=== PATIENT | female | born 1995 | race Caucasian/White ===

== ENCOUNTER 2016-07-24 16:24 | Inpatient (IN) ==
[2016-07-24] MEDS ORDERED: ONDANSETRON 4 MG/2 ML VIAL IV PRN ×2 (17:31→17:55)
[2016-07-24] MEDS ORDERED: WITCH HAZEL PADS 100/JAR TOP PRN (17:55)
[2016-07-24] MEDS ORDERED: MEASLES/MUMPS/RUBELLA VACCINE 0.5 ML VIAL SUBCUT ONE (17:55)
[2016-07-24] MEDS ORDERED: ACETAMINOPHEN 325 MG TABLET PO PRN (17:55)
[2016-07-24] MEDS ORDERED: HYDROCORTISONE 2.5% RECTAL CREAM 30 GM TUBE TOP PRN (17:55)
[2016-07-24] MEDS ORDERED: BISACODYL 10 MG SUPP RECTAL PRN (17:55)
[2016-07-24] MEDS ORDERED: LANOLIN 50% CREAM 0.3 OZ TUBE TOP PRN (17:55)
[2016-07-24] MEDS ORDERED: RHO(D) IMMUNE GLOBULIN 300 MCG SYRINGE IM ONE (17:55)
[2016-07-24] MEDS ORDERED: OXYTOCIN/LR 20 UNIT/1,000 ML BAG IV ONE (17:55)
[2016-07-24] MEDS ORDERED: BENZOCAINE 20%/MENTHOL 0.5% SPRAY 56 GM CAN TOP PRN (17:55)
[2016-07-24] MEDS ORDERED: oxyCODONE/ACETAMINOPHEN 5-325 MG TABLET PO PRN ×2 (17:55)
[2016-07-24] MEDS ORDERED: DIPH/TET/ACEL PERT BOOSTER VACCINE 0.5 ML VIAL IM ONE (17:55)
[2016-07-24] MEDS ORDERED: IBUPROFEN 800 MG TABLET PO PRN (17:55)
--- NOTE | 2016-07-24 17:55 | OB/GYN History & Physical ---
History of Present Illness Chief complaint: 39+3 weeks estimated gestational age admitted for induction History of present illness: Ms. Schumacher is a 20 year old female 1 para 0 at 39+3 weeks estimated gestational age with ultrasound estimated weight of 8 lbs. 3 oz. 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 General appearance: normal weight, no acute distress - Head Head exam: Present: normal inspection, normocephalic, atraumatic - Eye Eye exam: Present: EOMI - ENT ENT exam: Present: normal exam - Neck Neck exam: Present: normal inspection - Respiratory Respiratory exam: Present: clear to auscultation bilaterally - Breast Breasts: as per HPI Menstruation: as per HPI - GI/Abdominal GI/Abdominal exam: Present: normal bowel sounds - Extremities Exam Extremities exam: Present: normal inspection, normal capillary refill - Back Exam Back exam: Present: normal inspection - Neurological Exam Neurological exam: Present: alert, oriented X3 - Psychiatric Psychiatric exam: Present: normal affect, normal mood - Skin Skin exam: Present: normal color, warm Assessment and Plan (1) with 39 completed weeks gestation Status: Acute Current Visit: Yes
[2016-07-24 18:00] LABS: Basophils % 0.3 % (0.0-0.8); Eosinophils # 0.1 10*3/uL (0.0-0.87); Eosinophils % 0.6 % (0.00-10.9); Hematocrit 36.4 VOL% (35.7-47.0); Hemoglobin 11.9 GM/DL (12.0-16.0); Immature Granulocytes % 1.4 %; Immature Granulocytes Absolute 0.14 #; Lymphocytes # 1.7 10*3/uL (1.4-4.0); Lymphocytes % 16.1 % (21.3-54.2); Mean Corpuscular HGB Conc 32.7 GM/DL (32-36); Mean Corpuscular Hemoglobin 28 PG (27-34); Mean Corpuscular Volume 85.8 FL (87-102); Mean Platelet Volume 13.2 FL (9.6-12.0); Monocytes # 0.9 10*3/uL (0.11-0.8); Neutrophils # 7.5 10*3/uL (1.4-7.4); Neutrophils % 72.6 % (38.7-73.9); Platelet Count 118 T/CUMM (130-400); Red Blood Count 4.24 MC/CUMM (3.8-5.5); Red Cell Distribution Width 13.9 % (9.3-17.3); White Blood Count 10.4 T/CUMM (4-12)
[2016-07-24] MEDS: LACTATED RINGERS 1,000 ML IV SCH ×2 (19:43→23:05)
[2016-07-24] MEDS ORDERED: DOCUSATE SODIUM 100 MG CAPSULE PO SCH (21:00)
[2016-07-24] MEDS ORDERED: FAMOTIDINE 20 MG/2 ML VIAL IV ONE (22:48)
[2016-07-24] MEDS ORDERED: CITRIC ACID/SODIUM CITRATE 30 ML UDCUP PO ONE (22:48)
[2016-07-24] MEDS ORDERED: ePHEDrine 50 MG/ML AMP IV PRN (22:48)
[2016-07-24] MEDS ORDERED: fentaNYL 2 MCG/ROPIV 0.2% EPID 150 ML EPIDURAL SCH (22:57)
[2016-07-25] MEDS: LACTATED RINGERS 1,000 ML IV SCH (00:12)
[2016-07-25 00:54] LABS: Apearance,Urine CLEAR (Clear); Bilirubin,Urine Negative (Negative); Blood, Urine Negative (Negative); Glucose,Urine (UA) Negative (Negative); Ketones,Urine Negative (Negative); Nitrite,Urine Negative (Negative); Protein,Urine Negative; RBC,Urine <1 /HPF (0-4); Squamous Epithelial Cell,Urine Occasional /HPF (0-10); Urine Color Colorless (Yellow); Urine Specific Gravity 1.003 (1.001-1.035); Urine Urobilinogen < 2.0 EU/DL (0.2-1.0)
[2016-07-25 02:38] LABS: Basophils % 0.2 % (0.0-0.8); Eosinophils # 0.1 10*3/uL (0.0-0.87); Eosinophils % 0.4 % (0.00-10.9); Hematocrit 34.5 VOL% (35.7-47.0); Hemoglobin 11.4 GM/DL (12.0-16.0); Immature Granulocytes % 1.2 %; Immature Granulocytes Absolute 0.14 #; Lymphocytes # 1.9 10*3/uL (1.4-4.0); Lymphocytes % 15.8 % (21.3-54.2); Mean Corpuscular Hemoglobin 29 PG (27-34); Mean Corpuscular Volume 86.3 FL (87-102); Monocytes # 0.9 10*3/uL (0.11-0.8); Monocytes % 7.1 % (1.7-12.7); Neutrophils # 9.1 10*3/uL (1.4-7.4); Neutrophils % 75.3 % (38.7-73.9); Platelet Count 116 T/CUMM (130-400); Red Cell Distribution Width 13.9 % (9.3-17.3); White Blood Count 12.1 T/CUMM (4-12)
[2016-07-25] MEDS ORDERED: miSOPROStol 200 MCG TABLET ONE (05:54)
[2016-07-25] MEDS ORDERED: LIDOCAINE 1% 50 ML VIAL ONE (05:54)
[2016-07-25] MEDS ORDERED: METHYLERGONOVINE 0.2 MG/1 ML AMP ONE (05:55)
[2016-07-25] MEDS ORDERED: OXYTOCIN/LR 20 UNIT/1,000 ML BAG IV ONE ×2 (05:55→07:07)
[2016-07-25] MEDS ORDERED: ONDANSETRON 4 MG/2 ML VIAL IV PRN (07:07)
[2016-07-25] MEDS ORDERED: ACETAMINOPHEN 325 MG TABLET PO PRN (07:07)
[2016-07-25] MEDS ORDERED: oxyCODONE/ACETAMINOPHEN 5-325 MG TABLET PO PRN ×2 (07:07)
[2016-07-25] MEDS ORDERED: WITCH HAZEL PADS 100/JAR TOP PRN (07:07)
[2016-07-25] MEDS ORDERED: LANOLIN 50% CREAM 0.3 OZ TUBE TOP PRN (07:07)
[2016-07-25] MEDS ORDERED: BISACODYL 10 MG SUPP RECTAL PRN (07:07)
[2016-07-25] MEDS ORDERED: HYDROCORTISONE 2.5% RECTAL CREAM 30 GM TUBE TOP PRN (07:07)
[2016-07-25] MEDS ORDERED: BENZOCAINE 20%/MENTHOL 0.5% SPRAY 56 GM CAN TOP PRN (07:07)
--- NOTE | 2016-07-25 07:07 | OB/GYN Progress Note ---
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 Richter dictating vaginal delivery And in LDR environment under sterile conditions, the patient progressed to completely dilated. She was allowed to push and under [epidural] anesthesia had a normal spontaneous vaginal delivery of a live born female unweighed Apgars pending over a [second-degree midline episiotomy]. The ' s nose and oropharynx were bulb and DeLee suctioned, and the infant had spontaneous cry after delivery. The cord was doubly clamped and cut and the was handed over to the pediatric team for care. Cord blood was obtained the placenta delivered spontaneously intact and IV Pitocin was done. There were no cervical tears. There were no periurethral tears. The midline episiotomy was repaired with 2-0 Monocryl suture in usual fashion under epidural anesthesia without complication. Estimated blood loss was 250 mL. There were no complications. The bladder was emptied using a catheter prior to delivery. All sponge needle and instrument counts were correct -3 at the end of the delivery. The was taken to nursery in stable condition Exam [employer] - Constitutional Vitals: Vital Signs Temp Pulse Resp BP Pulse Ox 07/25/16 04:00 98.0 F 85 18 103/57 100 07/25/16 00:00 97.4 F L 74 20 105/55 97 07/24/16 20:00 97.0 F L 81 20 135/73 Results - Labs CBC & BMP: 07/25/16 02:08
--- NOTE | 2016-07-25 07:12 | Discharge Summary ---
Hospital Course - Hospital Course Hospital Course: patient did well. She had quick return of bowel bladder function. She remained afebrile and normotensive throughout her hospitalization. She is constantly discharged on day #2 Diagnosis - Discharge Diagnosis (1) with 39 completed weeks gestation Status: Acute Discharge Plan - Discharge Data Disposition: Disch To Home/Self Care Condition at Discharge: Stable Discharge Diet: regular diet Activity: increase activity as tolerated, no lifting, other (Pelvic rest) Hygiene: may shower Weight Bearing at Discharge: full weight bearing Driving: no restrictions Contact your physician if you experience:: fever over 101, Difficulty voiding, Redness or swelling, Nausea/Vomiting, Shortness of breath, Bleeding, pain uncontrolled by pain medications - Discharge Medications New HYDROcodone/ACETAMIN 5-325 [[place] 5-325] 1 tablet PO Q4H PRN #15 tablet PRN Reason: Abdominal Pain Hydrocortisone 2.5% Rectal Cr [Anusol HC Cream] 1 applic TOP QID PRN applic PRN Reason: Hemorrhoids Witch Eileen Pads [Tucks Pads] 1 applic TOP Q4H PRN applic PRN Reason: Hemorrhoids Benzocaine 20%/Menth 0.5% Spr [Dermoplast Challenge] 1 spray TOP QID PRN PRN Reason: Pain Ibuprofen Tab [Motrin Tab] 800 mg PO Q6H PRN tablet PRN Reason: Pain Moderate (4-7) Continue Multivitamin () [ Vitamin] 1 tablet PO DAILY - Follow Up or Referral Follow Up: Forrest Richter MD [Physician] - 2 Weeks - Forms/Instructions Exam - Constitutional Vitals: Period Temp Pulse Resp BP Sys/Cleaning Pulse Ox Last 24 Hr 97.0 F-98.0 F 74-85 18-20 103-135/55-73 97-100 Discharge Results Procedures and tests throughout hospitalization: Pending Orders 07/26/16 04:00 Comp Blood Count Auto Diff IN AM Labs on day of discharge: Labs from last 24 hours 07/25/16 07/25/16 07/24/16 02:08 00:13 17:51 WBC 12.1 H RBC 4.00 Hgb 11.4 L Hct 34.5 L MCV 86.3 L MCH 29 MCHC 33.0 RDW 13.9 Plt Count 116 L MPV 14.0 H Neut % (Auto) 75.3 H Lymph % (Auto) 15.8 L Walker % (Auto) 7.1 Eos % (Auto) 0.4 Baso % (Auto) 0.2 Neut # (Auto) 9.1 H Lymph # (Auto) 1.9 Walker # (Auto) 0.9 H Eos # (Auto) 0.1 Baso # (Auto) 0.0 Immature Gran % 1.2 Nucleated RBC % 0.0 Immature Gran # 0.14 Nucleated RBCs # 0.00 Urine Color Colorless Urine Appearance Clear Urine pH 8.0 Ur Specific [place] 1.003 Urine Protein Negative Urine Glucose (UA) Negative Urine Ketones Negative Urine Blood Negative Urine Nitrate Negative Urine Bilirubin Negative Urine Urobilinogen < 2.0 H Urine Leukocytes Negative Urine RBC <1 Ur Squamous Epith Cells Occasional Ur Culture Indicated? Not indicated Blood Type O POSITIVE Antibody Screen Negative 07/24/16 17:51 WBC 10.4 RBC 4.24 Hgb 11.9 L Hct 36.4 MCV 85.8 L MCH 28 MCHC 32.7 RDW 13.9 Plt Count 118 L MPV 13.2 H Neut % (Auto) 72.6 Lymph % (Auto) 16.1 L Walker % (Auto) 9.0 Eos % (Auto) 0.6 Baso % (Auto) 0.3 Neut # (Auto) 7.5 H Lymph # (Auto) 1.7 Walker # (Auto) 0.9 H Eos # (Auto) 0.1 Baso # (Auto) 0.0 Immature Gran % 1.4 Nucleated RBC % 0.0 Immature Gran # 0.14 Nucleated RBCs # 0.00 Urine Color Urine Appearance Urine pH Ur Specific [place] Urine Protein Urine Glucose (UA) Urine Ketones Urine Blood Urine Nitrate Urine Bilirubin Urine Urobilinogen Urine Leukocytes Urine RBC Ur Squamous Epith Cells Ur Culture Indicated? Blood Type Antibody Screen DS: Provider Date of admission: 07/24/16 16:53 Attending physician on admission: Myranda Cartwright Consults: 07/24/16 17:31 Consult to Anesthesiology [CONS] Routine Consulting Provider: Reason for Anesthesiology: Epidural Consult Comment: Epidural for pain managment 07/24/16 17:56 Consult to Bundle Breaker [CONS] Routine Consult Bundle Breaker: Breast Feeding 07/25/16 07:07 Consult to Bundle Breaker [CONS] Routine Consult Bundle Breaker: Breast Feeding Discharging clinician: Myranda Cartwright Expected date of discharge: 07/27/16
[2016-07-25] MEDS ORDERED: DIPH/TET/ACEL PERT BOOSTER VACCINE 0.5 ML VIAL IM ONE (08:00)
[2016-07-25] MEDS ORDERED: MEASLES/MUMPS/RUBELLA VACCINE 0.5 ML VIAL SUBCUT ONE (08:00)
[2016-07-25] MEDS ORDERED: RHO(D) IMMUNE GLOBULIN 300 MCG SYRINGE IM ONE (08:00)
[2016-07-25] MEDS: DOCUSATE SODIUM 100 MG CAPSULE PO SCH ×2 (10:13→20:51)
[2016-07-25] MEDS: MULTIVITAMIN (PRENATAL) TABLET PO SCH (10:14)
[2016-07-25] MEDS: IBUPROFEN 800 MG TABLET PO PRN ×2 (12:23→20:51)
--- NOTE | 2016-07-25 15:17 | Anesthesia Post-Op ---
Anesthesia Post OP - Post Ansesthetic Evaluation Patient seen in post op: Yes Resp: within normal limits CV: within normal limits Mental: within normal limits Temp: within normal limits [id number]: within normal limits Nausea and Vomiting: within normal limits Pain: within normal limits
[2016-07-26] MEDS: IBUPROFEN 800 MG TABLET PO PRN ×2 (04:34→14:50)
[2016-07-26 06:04] LABS: Basophils % 0.2 % (0.0-0.8); Eosinophils # 0.1 10*3/uL (0.0-0.87); Eosinophils % 1.5 % (0.00-10.9); Hematocrit 31.9 VOL% (35.7-47.0); Hemoglobin 10.4 GM/DL (12.0-16.0); Immature Granulocytes % 1.1 %; Lymphocytes # 1.4 10*3/uL (1.4-4.0); Lymphocytes % 16.3 % (21.3-54.2); Mean Corpuscular HGB Conc 32.6 GM/DL (32-36); Mean Corpuscular Hemoglobin 28 PG (27-34); Mean Corpuscular Volume 86.9 FL (87-102); Mean Platelet Volume 14.1 FL (9.6-12.0); Monocytes # 0.7 10*3/uL (0.11-0.8); Monocytes % 7.5 % (1.7-12.7); Neutrophils # 6.5 10*3/uL (1.4-7.4); Neutrophils % 73.4 % (38.7-73.9); Platelet Count 100 T/CUMM (130-400); Red Blood Count 3.67 MC/CUMM (3.8-5.5); Red Cell Distribution Width 14.2 % (9.3-17.3); White Blood Count 8.8 T/CUMM (4-12)
[2016-07-26] MEDS: DOCUSATE SODIUM 100 MG CAPSULE PO SCH ×2 (09:03→22:00)
[2016-07-26] MEDS: MULTIVITAMIN (PRENATAL) TABLET PO SCH (09:03)
--- NOTE | 2016-07-26 09:52 | OB/GYN Progress Note ---
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
[2016-07-27 08:05] VITALS: BP 103/53
[2016-07-27] MEDS: MULTIVITAMIN (PRENATAL) TABLET PO SCH (09:17)
[2016-07-27] MEDS: DOCUSATE SODIUM 100 MG CAPSULE PO SCH (09:17)
[2016-07-27] MEDS: IBUPROFEN 800 MG TABLET PO PRN ×2 (12:05)
== END 2016-07-27 13:25 | disposition home or self-care (01) | DRG 560 ==
LOC: N.LDOUT 16:24 → N.LD 16:27 → N.OB 07-25 08:23
PROVIDERS: ADMIT Specialist; ATTEND Specialist